=== PATIENT | male | born 1955 | race Caucasian/White ===

== ENCOUNTER 2016-06-29 16:19 | Emergency (ER) | payer BC ==
[~2016-06-29] VITALS: Ht 182.9 cm; Wt 91.6 kg
[~2016-06-29 16:19] MED LIST: ASPI81TA28 PO; CLR10 PO; ESCI10TA17 PO; LOSA1TAB PO; SIMV20TA2 PO
[2016-06-29 16:30] VITALS: Ht 182.9 cm; Wt 91.6 kg
[2016-06-29] MEDS ORDERED: SODIUM CHLORIDE 0.9% 1000ML 1,000 ML IV STA (17:39)
[2016-06-29] MEDS ORDERED: SODIUM CHLORIDE 0.9% 1000ML 2,000 ML IV STA (17:39)
[2016-06-29] MEDS ORDERED: AMOX500T3 PO (17:45)
[2016-06-29] MEDS ORDERED: IBUP-1459 PO (17:45)
[2016-06-29] MEDS ORDERED: ACET-1256 PO (17:45)
[2016-06-29] MEDS ORDERED: ACETAMINOPHEN IV 100 ML IV ONE (17:45)
[2016-06-29 17:55] LABS: BASO % 0.4 %; BASO ABS # 0.03 K/uL (0-0.2); COMPLETE YES; HEMATOCRIT 41.5 % (42-52); IG% 0.1 %; LYMPH % 4.7 %; LYMPH ABS # 0.35 K/uL (1.2-3.4); MEAN CELL VOLUME 90.8 fL (80-100); MEAN CORPUSCULAR HEMOGLOBIN 30.4 pg (25-34); MEAN CORPUSCULAR HGB CONC 33.5 g/dl (32-36); MEAN PLATELET VOLUME 11.5 fL (7.4-10.4); MONO % 3.3 %; NEUT % 91.5 %; PLATELET COUNT 168 K/uL (130-400); RED BLOOD COUNT 4.57 M/uL (4.7-6.1); WHITE BLOOD COUNT 7.38 K/uL (4.8-10.8)
[2016-06-29 18:01] LABS: URINE APPEARANCE CLEAR (CLEAR); URINE BILIRUBIN NEG (NEG); URINE COLOR DK YELLOW; URINE NITRITE NEG (NEG); URINE PH 5.5 (4.5-7.5); URINE SPECIFIC GRAVITY 1.026 (1.000-1.030); UROBILINOGEN NEG (NEG)
[2016-06-29 18:02] LABS: BUN/CREATININE RATIO 11.1 (10-20); CALCIUM 8.4 mg/dl (8.5-10.1); CREATININE 1.1 mg/dl (0.60-1.40); POTASSIUM 3.6 mmol/L (3.5-5.1)
[2016-06-29 18:03] LABS: MANUAL MICROSCOPIC REQUIRED? NO; REVIEW REQ? NO
[2016-06-29 18:05] LABS: ALB/GLOB RATIO 0.9 (0.9-2)
[2016-06-29] MEDS ORDERED: OPTIRAY 320 IV PRN (18:15)
--- NOTE | 2016-06-29 18:15 | DIAGNOSTIC IMAGING REPORT ---
ABDOMEN 2VIEW W/PA CHEST RTN CLINICAL HISTORY: FEVER X 3 DAYS, LOWER ABD DISCOMFORT COMPARISON STUDY: No previous studies for comparison. FINDINGS: The erect chest reveals no evidence of free air. There is no evidence of focal pulmonary consolidation.] Erect and supine views of the abdomen reveal no abnormally dilated loops of large or small bowel. There are no transition zone to indicate bowel obstruction. There is moderate scattered stool within the colon. IMPRESSION: No evidence of bowel obstruction. No evidence of free air. Electronically signed by: Chema Franco M.D. 06/29/2016 6:14 PM Dictated Date/Time: 06/29/2016 6:13 PM
[2016-06-29 18:59] LABS: LYME DISEASE AB IGG NEG (NEG); LYME DISEASE AB IGM NEG (NEG)
--- NOTE | 2016-06-29 19:10 | DIAGNOSTIC IMAGING REPORT ---
CT ABD/PELVIS IV CONTRAST ONLY CLINICAL HISTORY: Fever and abdominal pain COMPARISON STUDY: Conventional radiographic study dated 06/29/2016 TECHNIQUE: Following the IV administration of 120 mL of Optiray-320, CT scan of the abdomen and pelvis was performed from the lung bases to the proximal femurs. Images are reviewed in the axial, sagittal, and coronal planes. IV contrast was administered without complication. CT DOSE: 479.47 mGy.cm FINDINGS: Lower chest: There are bibasal atelectatic changes. Liver: There are subcentimeter hepatic hypodensities, likely resulting cysts. Gallbladder: Unremarkable. Spleen: Normal in size and attenuation. Pancreas: Unremarkable. Adrenal glands: Unremarkable. Kidneys: There is a to small to characterize 3 mm hypodensity within the upper pole the right kidney likely representing a cyst Bowel: There are no transition zones indicate bowel obstruction. There is no evidence of acute diverticulitis. The appendix is not visualized with certainty. Evaluation is limited due to the lack of orally administered contrast. Peritoneum: There is no intraperitoneal free air or abdominal ascites. Vasculature: The abdominal aorta is normal in course and caliber. Adenopathy: None. Pelvic viscera: There is borderline prostatic enlargement. Skeletal structures: No destructive osseous lesions are seen. IMPRESSION: 1. No evidence of bowel obstruction. No evidence of free air 2. No evidence of acute diverticulitis 3. The appendix is not visualized with certainty on this study performed without the benefit of oral contrast. There are however no findings to indicate acute appendicitis Electronically signed by: Chema Franco M.D. 06/29/2016 7:08 PM Dictated Date/Time: 06/29/2016 7:03 PM
[2016-06-29 19:53] VITALS: BP 151/74; PULSE 99; O2SAT 98
[2016-06-29 20:02] VITALS: TEMP 37.8
--- NOTE | 2016-06-29 20:04 | EMERGENCY ROOM VISIT NOTE ---
History First contact with patient: 17:22 Chief Complaint: FEVER Stated Complaint: FEVER/CHILLS/SEVERE SHAKES History of Present Illness Patient is a 61-year-old white male with past medical history significant for hypertension and dyslipidemia who presents emergency department for evaluation of a fever 3 days. Patient reports that he had been feeling well and was in a usual state of health until Saturday evening when he developed subjective chills , sweats and fever. He has been alternating Tylenol 1000 mg and ibuprofen 400 mg every 4-5 hours which has been helping. He also reports some associated low back pain and joint pain. Temperature maximum was 102F orally. He noticed some increased urination as well, and went to the [facility] walk-in clinic Saturday, 2 days ago where a urinalysis was performed and was negative. His fever continued, and he had an appointment with his primary care provider today. He had laboratory studies performed, and in the end, he was started on amoxicillin for which he has had one dose. He reported feeling well when he left the doctor's office, then around 3:00, he developed shaking chills that lasted about 30 minutes. He has begun to notice some lower abdominal tenderness since arriving in the emergency department. He notes a mild headache with fever, denies any upper respiratory symptoms. No cough or sputum. She. No chest pain. He reports bowel movements have been normal, and or on the constipated side, he certainly has not had any diarrhea and denies any melena or hematochezia. He notes decreased urinary output today but believes this is because he has not been able to push his oral fluids as he has been. He thought he may have had a tick bite on his medial left thigh. It was itchy for a few days, then went away, and he denies developing any classic Bullseye rash. He denies any posterior neck pain or stiffness. He denies any sick contacts. Review of Systems Review of systems as per HPI. All other systems reviewed were negative. 10 systems reviewed. Past Medical/Surgical History Medical Problems: (1) Allergic rhinitis (2) Depression (3) Diarrhea (4) Dyslipidemia (5) Hypertension (6) Sinus infection (7) Weakness Electronic medical records are reviewed and summarized as above/below. See Problem List. Family History No pertinent family history Social History Smoking Status: Never Smoker Marital Status: Housing Status: lives with family Occupation Status: employed Current/Historical Medications Scheduled Acetaminophen (Tylenol), 1,000 MG PO Q8 Amoxicillin (Amoxil), 500 MG PO TID Aspirin (Aspirin Ec), 81 MG PO DAILY Escitalopram (Lexapro), 5 MG PO DAILY Loratadine (Claritin), 10 MG PO DAILY Losartan Potassium (Cozaar), 25 MG PO DAILY Simvastatin (Zocor), 20 MG PO QPM Scheduled PRN Ibuprofen (Motrin), 400 MG PO Q6H PRN for Pain Allergies Coded Allergies: Sulfamethoxazole (Unverified Allergy, Unknown, HIVES, 06/29/16) Physical Exam Vital Signs Date Time Temp Pulse Resp B/P Pulse Ox O2 Delivery O2 Flow Rate FiO2 06/29/16 20:02 37.8 06/29/16 19:53 99 18 151/74 98 Room Air 06/29/16 18:32 93 20 152/70 97 Room Air 06/29/16 16:30 37.8 119 18 157/78 95 Room Air Physical Exam CONSTITUTIONAL: Patient is a slightly diaphoretic 61-year-old white male who is awake and alert and in no acute distress. He is noted to be febrile with a temperature 37.8C orally, tachycardic with a heart rate of 119 beats per minute. EYES: Pupils equal, round, reactive to light and accommodation. EOMs intact without nystagmus. Sclera are anicteric. ENT: Tympanic membranes intact, with normal landmarks. External canals are clear. Oral and nasopharynx are clear. Mucous membranes are moist, no lesions , tongue and gums appear normal. NECK: No bruits auscultated. Supple without lymphadenopathy. No thyromegaly. No meningeal signs. Full active range of motion without discomfort. CARDIOVASCULAR: Tachycardic rate and rhythm, with normal S1 and S2, no murmur or gallop or rub is heard. No carotid bruits auscultated. No JVD. Peripheral pulses easy to palpable. RESPIRATORY: Breath sounds equal and clear to auscultation without wheezes, rales, or rhonchi heard. Full and equal chest expansion without accessory muscle use or retractions. GI: Bowel sounds are present. Abdomen is soft, nondistended, slightly tender to palpation in the suprapubic and right lower quadrant. No organomegaly. No pulsatile masses. No guarding or rebound. MUSCULOSKELETAL: Full range of motion of extremities x 4 with good strength. No cyanosis, edema, joint tenderness or swelling. No deformity. INTEGUMENTARY: No lesions or rash, normal skin turgor. NEUROLOGICAL: Alert, oriented, and cooperative. Cranial nerves, sensation and strength grossly intact. Pupils round, equal, and react to light, EOMs are full. LYMPH: No lymphadenopathy. Medical Decision & Procedures ER Provider Diagnostic Interpretation: CT ABD/PELVIS IV CONTRAST ONLY CLINICAL HISTORY: Fever and abdominal pain COMPARISON STUDY: Conventional radiographic study dated 06/29/2016 TECHNIQUE: Following the IV administration of 120 mL of Optiray-320, CT scan of the abdomen and pelvis was performed from the lung bases to the proximal femurs. Images are reviewed in the axial, sagittal, and coronal planes. IV contrast was administered without complication. CT DOSE: 479.47 mGy.cm FINDINGS: Lower chest: There are bibasal atelectatic changes. Liver: There are subcentimeter hepatic hypodensities, likely resulting cysts. Gallbladder: Unremarkable. Spleen: Normal in size and attenuation. Pancreas: Unremarkable. Adrenal glands: Unremarkable. Kidneys: There is a to small to characterize 3 mm hypodensity within the upper pole the right kidney likely representing a cyst Bowel: There are no transition zones indicate bowel obstruction. There is no evidence of acute diverticulitis. The appendix is not visualized with certainty. Evaluation is limited due to the lack of orally administered contrast. Peritoneum: There is no intraperitoneal free air or abdominal ascites. Vasculature: The abdominal aorta is normal in course and caliber. Adenopathy: None. Pelvic viscera: There is borderline prostatic enlargement. Skeletal structures: No destructive osseous lesions are seen. IMPRESSION: 1. No evidence of bowel obstruction. No evidence of free air 2. No evidence of acute diverticulitis 3. The appendix is not visualized with certainty on this study performed without the benefit of oral contrast. There are however no findings to indicate acute appendicitis ABDOMEN 2VIEW W/PA CHEST RTN CLINICAL HISTORY: FEVER X 3 DAYS, LOWER ABD DISCOMFORT COMPARISON STUDY: No previous studies for comparison. FINDINGS: The erect chest reveals no evidence of free air. There is no evidence of focal pulmonary consolidation. Erect and supine views of the abdomen reveal no abnormally dilated loops of large or small bowel. There are no transition zone to indicate bowel obstruction. There is moderate scattered stool within the colon. IMPRESSION: No evidence of bowel obstruction. No evidence of free air. Laboratory Results 06/29/16 17:21 Red Blood Count 4.57, Mean Corpuscular Volume 90.8, Mean Corpuscular Hemoglobin 30.4, Mean Corpuscular Hemoglobin Concent 33.5, Mean Platelet Volume 11.5, Neutrophils (%) (Auto) 91.5, Lymphocytes (%) (Auto) 4.7, Monocytes (%) (Auto) 3.3, Eosinophils (%) (Auto) 0.0, Basophils (%) (Auto) 0.4, Neutrophils # (Auto) 6.75, Lymphocytes # (Auto) 0.35, Monocytes # (Auto) 0.24, Eosinophils # (Auto) 0.00, Basophils # (Auto) 0.03 06/29/16 17:21 Test 06/29/16 17:00 06/29/16 17:21 06/29/16 18:24 Urine Color DK YELLOW Urine Appearance CLEAR (CLEAR) Urine pH 5.5 (4.5-7.5) Urine Specific [place] 1.026 (1.000-1.030) Urine Protein 1+ (NEG) Urine Glucose (UA) NEG (NEG) Urine Ketones TRACE (NEG) Urine Occult Blood NEG (NEG) Urine Nitrite NEG (NEG) Urine Bilirubin NEG (NEG) Urine Urobilinogen NEG (NEG) Urine Leukocyte Esterase NEG (NEG) Urine WBC (Auto) 1-5 /hpf (0-5) Urine RBC (Auto) 0-4 /hpf (0-4) Urine Hyaline Casts (Auto) 1-5 /lpf (0-5) Urine Epithelial Cells (Auto) 5-10 /lpf (0-5) Urine Bacteria (Auto) NEG (NEG) White Blood Count 7.38 K/uL (4.8-10.8) Red Blood Count 4.57 M/uL (4.7-6.1) Hemoglobin 13.9 g/dL (14.0-18.0) Hematocrit 41.5 % (42-52) Mean Corpuscular Volume 90.8 fL (80-100) Mean Corpuscular Hemoglobin 30.4 pg (25-34) Mean Corpuscular Hemoglobin Concent 33.5 g/dl (32-36) Platelet Count 168 K/uL (130-400) Mean Platelet Volume 11.5 fL (7.4-10.4) Neutrophils (%) (Auto) 91.5 % Lymphocytes (%) (Auto) 4.7 % Monocytes (%) (Auto) 3.3 % Eosinophils (%) (Auto) 0.0 % Basophils (%) (Auto) 0.4 % Neutrophils # (Auto) 6.75 K/uL (1.4-6.5) Lymphocytes # (Auto) 0.35 K/uL (1.2-3.4) Monocytes # (Auto) 0.24 K/uL (0.11-0.59) Eosinophils # (Auto) 0.00 K/uL (0-0.5) Basophils # (Auto) 0.03 K/uL (0-0.2) RDW Standard Deviation 43.2 fL (36.4-46.3) RDW Coefficient of Variation 12.9 % (11.5-14.5) Immature Granulocyte % (Auto) 0.1 % Immature Granulocyte # (Auto) 0.01 K/uL (0.00-0.02) Anion Gap 8.0 mmol/L (3-11) Est Creatinine Clear Calc Drug Dose 77.4 ml/min Estimated GFR () 83.5 Estimated GFR (Non- 72.1 BUN/Creatinine Ratio 11.1 (10-20) Calcium Level 8.4 mg/dl (8.5-10.1) Total Bilirubin 0.4 mg/dl (0.2-1) Aspartate Amino Transf (AST/SGOT) 183 U/L (15-37) Alanine Aminotransferase (ALT/SGPT) 207 U/L (12-78) Alkaline Phosphatase 115 U/L (45-117) Total Protein 7.6 gm/dl (6.4-8.2) Albumin 3.6 gm/dl (3.4-5.0) Globulin 4.0 gm/dl (2.5-4.0) Albumin/Globulin Ratio 0.9 (0.9-2) Lyme Disease IgG Antibody NEG (NEG) Lyme Disease IgM Antibody NEG (NEG) Hepatitis B Surface Antigen NEG (NEG) Hepatitis C Antibody NEG (NEG) Monoscreen NEG (NEG) Bedside Lactic Acid Venous 1.14 mmol/L (0.90-1.70) Medications Administered Medications (Trade) Dose Ordered Sig/Sal Route Start Time Stop Time Status Last Admin Dose Admin Acetaminophen 100 ml @ 400 mls/hr NOW ONCE IV 06/29/16 17:45 06/29/16 17:59 DC 06/29/16 18:28 400 MLS/HR Sodium Chloride 2,000 ml @ 999 mls/hr Q2H1M STAT IV 06/29/16 17:39 06/29/16 19:39 DC 06/29/16 18:23 999 MLS/HR Sodium Chloride (Nss 1000ml) 1,000 ml @ 250 mls/hr Q4H STAT IV 06/29/16 17:39 06/29/16 20:39 DC 06/29/16 18:37 250 MLS/HR ED Course The patient was seen and evaluated as above. Old records reviewed. IV lock was initiated and laboratory studies were collected. Patient was medicated with acetaminophen 1 g IV. Laboratory studies were collected including CBC with differential, CMP, blood cultures 2, [id number] lactic acid, and urinalysis. Acute abdominal series was obtained and was unremarkable. Laboratory studies revealed a normal white count at 7800, no bandemia noted. H& H 13.9 and 41.5. Platelet count is normal. Electrolytes and renal functions are within normal limits. [id number] lactic acid is not elevated. He is slight, nonspecific elevation of his transaminases, AST and ALT are 183 and 270 respectively. Remainder of liver functions are within normal limits. Given the slightly elevated transaminases, hepatitis panel and Monospot were ordered. Urinalysis noted trace ketones only. No indicators for infection. Lyme screen is negative. Hepatitis B surface antigen and hepatitis C antibody are negative. Todd screen is negative. Given the patient's fever and lower abdominal discomfort, CT scan of the abdomen pelvis with IV contrast was ordered. There was no evidence for bowel obstruction, free air, or acute diverticulitis. The appendix was not visualized with certainty, but there were no findings to indicate acute appendicitis. The patient was reassessed. He remained febrile with temperature 37.8C orally. All laboratory and diagnostic imaging studies were reviewed with attending physician. The patient is experiencing an acute febrile illness of unclear etiology. Other than some minor lower abdominal discomfort he does not have any physical exam findings to pinpoint the source of infection. Differential diagnoses entertained included URI, pneumonia, bronchitis, influenza, meningitis or encephalitis, viral illness, UTI, pyelonephritis, appendicitis, acute hepatitis, diverticulitis, and supportive care measures were discussed. Fever management was outlined with the patient and his family. He is encouraged to recheck with his primary care provider for further care and management, and to return to the emergency Department if any worsening symptoms. He was discharged home into the care of his family in good condition. Medical Decision See ED Course. Impression Primary Impression: Acute febrile illness Departure Information Referrals Jose Hoskins MD (PCP) Patient Instructions [facility] Additional Instructions Acetaminophen(Tylenol) may be used for fever or pain. Use 1000mg every six hours as needed. Avoid using more than 3000mg in a 24 hour period. (AND/OR) Ibuprofen(Motrin, Advil) may be used for fever or pain. Use 600mg every six hours as needed. Take with food. Avoid using more than 2400mg in a 24 hour period. Do not use 2400mg per day for more than three consecutive days without physician direction. Prolonged inappropriate use can lead to stomach upset or ulcers. Rest and drink plenty of fluids. Controlling your fever with Tylenol and Ibuprofen as above will make you feel better. Tylenol/acetaminophen and Motrin/ibuprofen may be safely taken together or alternated for fever/pain control. They work differently and won't interact with each other. An example using 6 hour dosing would be Tylenol at Noon, Motrin at 3 PM, then Tylenol at 6 PM, and then Motrin at 9 PM. This alternating example gives your child a fever/pain controlling medication every three hours and generally works very well. Continue current medications. Return to the ER for severe headache, neck stiffness, chest pain, difficulty breathing, uncontrolled fevers, vomiting, worsening of your condition, or as needed. Follow up with your primary physician this week for a recheck of your current condition.
== END 2016-06-29 20:10 | disposition home or self-care (01) ==
LOC: C.EDB 16:20 → C.EDC 20:10
DX: R50.9 Fever, unspecified (principal); I10 Essential (primary) hypertension; E78.5 Hyperlipidemia, unspecified; F32.9 Major depressive disorder, single episode, unspecified; Z79.82 Long term (current) use of aspirin; Z79.899 Other long term (current) drug therapy